=== PATIENT | female | born 1940 | race Caucasian/White ===

== ENCOUNTER 2019-02-05 23:22 | Emergency (ER) | payer MEDICARE ==
[~2019-02-05] VITALS: Ht 161.3 cm; Wt 72.6 kg
[~2019-02-05 23:22] MED LIST: AMIT25PO14 PO; LEVO75TA PO; RANI-448 PO
[2019-02-05 23:24] VITALS: BP 151/62
--- NOTE | 2019-02-06 | NUR ---
Pt brought to room 18, reports "pink urine this evening, denies n/v/d c/o mild pain w/ urination, afebrile, vitals stable.
[2019-02-06 00:08] LABS: BASOPHILS # (AUTO) 0.02 x10^3/uL (0-0.1); BASOPHILS % (AUTO) 1 % (0-1); EOSINOPHILS # (AUTO) 0.15 x10^3/uL (0-0.4); EOSINOPHILS % (AUTO) 4 % (1-7); LYMPHOCYTES # (AUTO) 1.23 x10^3/uL (1-3.4); LYMPHOCYTES % (AUTO) 30 % (22-44); MD NO; MEAN CORPUSCULAR HEMOGLOBIN 30.6 pg (27.0-34.8); MEAN CORPUSCULAR HGB CONC 33.2 g/dL (32.4-35.8); MEAN CORPUSCULAR VOLUME 92.2 fL (80-100); MEAN PLATELET VOLUME 7.8 fL (7.4-10.4); MONOCYTES # (AUTO) 0.47 x10^3/uL (0.2-0.8); MONOCYTES % (AUTO) 11 % (2-9); NEUTROPHILS # (AUTO) 2.24 x10^3/uL (1.8-6.8); NEUTROPHILS % (AUTO) 54 % (42-75); PLATELET COUNT 196 x10^3/uL (130-400); RED BLOOD COUNT 4.25 x10^6/uL (3.82-5.3); RED CELL DISTRIBUTION WIDTH 13.5 % (9.6-15.2)
[2019-02-06 00:15] LABS: ANION GAP 5 mmol/L (5-15); CALCIUM 8.4 mg/dL (8.5-10.1); CHLORIDE 105 mmol/L (98-107); CREATININE 0.93 mg/dL (0.55-1.02)
[2019-02-06 00:27] LABS: MICROSCOPIC INDICATED
[2019-02-06 00:28] LABS: CULTURE INDICATED? YES
--- NOTE | 2019-02-06 00:36 | NUR ---
PRIMO RN: REPORT GIVEN TO KIM GUADALUPE
[2019-02-06] MEDS ORDERED: CEFDINIR 300 MG CAPSULE ONE (00:43)
[2019-02-06] MEDS ORDERED: CEFDINIR 300 MG CAPSULE PO ONE (01:00)
== END 2019-02-06 00:52 | disposition home or self-care (01) ==
LOC: ED 23:59
DX: N30.00 Acute cystitis without hematuria (principal); K21.9 Gastro-esophageal reflux disease without esophagitis; E03.9 Hypothyroidism, unspecified
CPT/HCPCS: 36415; 80048; 81001; 85025; 87077; 87086; 99283

== ENCOUNTER 2021-03-08 14:48 | Outpatient (CLI) | payer MEDICARE ==
[~2021-03-08 14:48] MED LIST changes: -AMIT25PO14 PO; -RANI-448 PO; +RANI-460 PO; +[UNRECOGNIZED DRUG - CODE] PO
== END 2021-03-08 23:59 | disposition home or self-care (01) ==
LOC: CFH 14:48
PROVIDERS: ATTEND Family Medicine
DX: R93.89 Abnormal findings on diagnostic imaging of other specified body structures (principal); N93.9 Abnormal uterine and vaginal bleeding, unspecified
CPT/HCPCS: 76830

== ENCOUNTER 2021-03-09 10:29 | Outpatient (CLI) | payer MEDICARE ==
[2021-03-09 11:18] LABS: MICROSCOPIC AUTO
[2021-03-09 11:19] LABS: BASOPHILS % (AUTO) 1 % (0-1); EOSINOPHILS % (AUTO) 3 % (1-7); LYMPHOCYTES % (AUTO) 25 % (22-44); MEAN CORPUSCULAR HEMOGLOBIN 30.9 pg (27.0-34.8); MEAN CORPUSCULAR HGB CONC 33.6 g/dL (32.4-35.8); MEAN PLATELET VOLUME 7.4 fL (7.4-10.4); MONOCYTES % (AUTO) 10 % (2-9); NEUTROPHILS % (AUTO) 61 % (42-75); PLATELET COUNT 241 x10^3/uL (130-400); RED BLOOD COUNT 4.47 x10^6/uL (3.82-5.3); RED CELL DISTRIBUTION WIDTH 13.5 % (9.6-15.2)
[2021-03-09 11:26] LABS: CHLORIDE 100 mmol/L (98-107)
[2021-03-09 11:38] LABS: ALANINE AMINOTRANSFERASE 21 U/L (12-78); ALBUMIN 3.7 g/dL (3.4-5.0); ALKALINE PHOSPHATASE 97 U/L (45-117); ANION GAP 6 mmol/L (5-15); BILIRUBIN,TOTAL 0.8 mg/dL (0.2-1.0); CALCIUM 8.3 mg/dL (8.5-10.1); CHOL/HDL RATIO 3.5; CHOLESTEROL, TOTAL 191 mg/dL (140-239); FREE T4 (FREE THYROXINE) 1.33 ng/dL (0.76-1.46); HDL CHOL % 28 % (28-40); HDL CHOLESTEROL (DIRECT) 54 mg/dL (40-60); LDL CHOLESTEROL,CALCULATED 116 mg/dL (54-169); LDL/HDL RATIO 2.1 (0.5-3.0); TRIGLYCERIDES 105 mg/dL (50-200); VLDL CHOLESTEROL 21 mg/dL (0-25)
== END 2021-03-09 23:59 | disposition home or self-care (01) ==
LOC: LAB 10:29
PROVIDERS: ATTEND Family Medicine
DX: R79.9 Abnormal finding of blood chemistry, unspecified (principal); E03.9 Hypothyroidism, unspecified; R53.83 Other fatigue
CPT/HCPCS: 36415; 80053; 80061; 81001; 83036; 84439; 84443; 84481; 85025